=== PATIENT | male | born 1965 | race Caucasian/White ===

== ENCOUNTER 2019-05-16 08:42 | Emergency (ER) | payer MEDICARE, OTHER ==
[~2019-05-16] VITALS: Ht 180.3 cm; Wt 79.4 kg
[~2019-05-16 08:42] MED LIST: ARIP10; Bactroban22 GM TOP; Clotrimazole15 GM TP; DIVA500ER PO; LAMO100 PO; METO25; OXYB5 PO; RISP2 PO; SERT100 PO; SERT50 PO; ZOLP10 PO; Zofran4 MG PO
[2019-05-16 10:18] LABS: BASOPHILS ABSOLUTE AUTO 0.01 K/mm3 (0.00-0.23); BASOPHILS PERCENT AUTO 0 % (0-2); EOSINOPHILS ABSOLUTE AUTO 0.01 K/mm3 (0.00-0.68); EOSINOPHILS PERCENT AUTO 0 % (0-6); Hematocrit 37.2 % (37.0-53.0); Hemoglobin 12.3 g/dL (13.5-17.5); IMMATURE GRAN ABSOLUTE AUTO 0.02 K/mm3 (0.00-0.10); IMMATURE GRAN PERCENT AUTO 1 % (0-1); LYMPHOCYTES ABSOLUTE AUTO 0.91 K/mm3 (0.84-5.20); LYMPHOCYTES PERCENT AUTO 29 % (21-46); MONOCYTES ABSOLUTE AUTO 0.34 K/mm3 (0.16-1.47); MONOCYTES PERCENT AUTO 11 % (4-13); Mean Corpuscular HGB 30.5 pg (26.0-34.0); Mean Corpuscular HGB Conc 33.1 g/dL (31.5-36.5); Mean Corpuscular Volume 92 fL (80-100); Mean Platelet Volume 9.3 fL (9.1-12.4); NEUTROPHILS ABSOLUTE AUTO 1.81 K/mm3 (1.96-9.15); NEUTROPHILS PERCENT AUTO 58 % (41-73); Platelet Count 213 K/mm3 (150-400); RDW Coefficient Variation 13.5 % (11.7-14.2); Red Blood Cell Count 4.03 M/mm3 (4.30-5.90)
[2019-05-16 10:29] LABS: Alanine Aminotransfer (ALT/SGP 26 U/L (12-78); Albumin, Blood 3.6 g/dL (3.4-5.0); Albumin/Globulin Ratio 0.7 (0.8-1.8); Alk Phos 64 U/L (50-136); Anion Gap 9 mmol/L (6-16); Aspartate Aminotrans (AST/SGOT 44 U/L (12-37); Bilirubin, Total 0.3 mg/dL (0.1-1.0); Blood Urea Nitrogen 25 mg/dL (8-24); Bun/Creatinine Ratio 33.3 (12.0-20.0); CO2, Blood 28 mmol/L (21-32); Calcium, Blood 9.4 mg/dL (8.5-10.1); Chloride, Blood 94 mmol/L (98-108); Creatinine, Blood 0.75 mg/dL (0.60-1.20); Globulin, Blood 5.4 g/dL (2.2-4.0); Glomerular Filtration Rate >60 (60-); Glucose, Blood 126 mg/dL (70-99); Potassium, Blood 3.9 mmol/L (3.5-5.5); Sodium, Blood 131 mmol/L (136-145); Valproic Acid 95.2 ug/mL (50.0-100.0)
[2019-05-16 12:51] LABS: Source, Urine Voided
[2019-05-16 12:54] LABS: Bilirubin, Urine Neg (Neg); Blood, Urine 1+ (Neg); Glucose Qualitative, Urine Neg (Neg); Ketones, Urine 3+ (Neg); Leukocyte Esterase, Urine Neg (Neg); Nitrite, Urine Neg (Neg); Protein, Urine Neg (Neg); Specific Gravity, Urine 1.015 (1.003-1.022); Urobilinogen, Urine NORM (Normal)
[2019-05-16 13:25] LABS: Color, Urine Yellow (P-Yellow)
[2019-05-16 13:26] LABS: Appearance, Urine Clear (Clear)
[2019-05-16 13:28] LABS: Bacteria Rare /hpf; Mucus Mod (0-Heavy); Squamous Epithelial Cells Not Seen /hpf (Few)
[2019-05-16] MEDS ORDERED: ONDA4ODT MM (13:36)
[2019-05-16] MEDS ORDERED: Bactrim Ds Tab1 EACH PO (13:36)
== END 2019-05-16 14:15 | disposition home or self-care (01) ==
LOC: ER 08:42
PROVIDERS: Emergency Medicine
DX: N39.0 Urinary tract infection, site not specified (principal); R53.1 Weakness; I10 Essential (primary) hypertension; F32.9 Major depressive disorder, single episode, unspecified; G40.909 Epilepsy, unspecified, not intractable, without status epilepticus; G47.00 Insomnia, unspecified; Z79.899 Other long term (current) drug therapy
CPT/HCPCS: 36415; 51701; 80053; 80164; 80175; 81001; 85025; 99284; J7030

== ENCOUNTER 2024-10-04 08:29 | Emergency (ER) | payer MEDICARE, OTHER ==
[~2024-10-04] VITALS: Ht 175.3 cm; Wt 170.0 kg
[~2024-10-04 08:29] MED LIST changes: +Bactrim Ds Tab1 EACH PO; +ONDA4ODT MM
[2024-10-04 09:41] LABS: BASOPHILS ABSOLUTE AUTO 0.02 K/mm3 (0.00-0.23); BASOPHILS PERCENT AUTO 0 % (0-2); EOSINOPHILS ABSOLUTE AUTO 0.01 K/mm3 (0.00-0.68); EOSINOPHILS PERCENT AUTO 0 % (0-6); Hematocrit 38.1 % (37.0-53.0); Hemoglobin 12.7 g/dL (13.5-17.5); IMMATURE GRAN ABSOLUTE AUTO 0.02 K/mm3 (0.00-0.10); IMMATURE GRAN PERCENT AUTO 0 % (0-1); LYMPHOCYTES ABSOLUTE AUTO 1.06 K/mm3 (0.84-5.20); LYMPHOCYTES PERCENT AUTO 13 % (21-46); MONOCYTES ABSOLUTE AUTO 1.09 K/mm3 (0.16-1.47); MONOCYTES PERCENT AUTO 13 % (4-13); Mean Corpuscular HGB 31.5 pg (26.0-34.0); Mean Corpuscular HGB Conc 33.3 g/dL (31.5-36.5); Mean Corpuscular Volume 95 fL (80-100); Mean Platelet Volume 9.8 fL (9.1-12.4); NEUTROPHILS ABSOLUTE AUTO 6.02 K/mm3 (1.96-9.15); NEUTROPHILS PERCENT AUTO 73 % (41-73); Platelet Count 196 K/mm3 (150-400); RDW Coefficient Variation 13.5 % (11.7-14.2); RDW Standard Deviation 47.5 fL (35.1-46.3); Red Blood Cell Count 4.03 M/mm3 (4.30-5.90); White Blood Cell Count 8.22 K/mm3 (4.00-11.30)
[2024-10-04 09:58] LABS: Albumin, Blood 4.1 g/dL (3.4-5.0); Albumin/Globulin Ratio 1.1 (0.8-1.8); Bilirubin, Total 0.4 mg/dL (0.1-1.0); Bun/Creatinine Ratio 46.8 (12.0-20.0); Calcium, Blood 9.5 mg/dL (8.5-10.1); Creatinine, Blood 0.79 mg/dL (0.60-1.20); Globulin, Blood 3.9 g/dL (2.2-4.0); Magnesium, Blood 2.7 mg/dL (1.6-2.4); Potassium, Blood 3.7 mmol/L (3.5-5.5)
[2024-10-04 12:43] LABS: Source, Urine Straight Cath
[2024-10-04 12:59] LABS: Appearance, Urine Clear (Clear); Bilirubin, Urine Neg (Neg); Blood, Urine 5+ (Neg); Color, Urine Amber (P-Yellow); Glucose Qualitative, Urine Neg (Neg); Ketones, Urine 2+ (Neg); Leukocyte Esterase, Urine Neg (Neg); Nitrite, Urine Neg (Neg); Protein, Urine 2+ (Neg); Specific Gravity, Urine 1.025 (1.003-1.022); Urobilinogen, Urine NORM (Normal)
[2024-10-04 13:20] LABS: Red Blood Cells, Urine 0-2 /hpf (0-2); White Blood Cells, Urine 0-2 /hpf (0-5)
[2024-10-04 13:23] LABS: Squamous Epithelial Cells Rare /hpf (Few)
[2024-10-04 13:24] LABS: Amorphous Heavy (0-Heavy); Bacteria Few /hpf; Mucus Light (0-Heavy)
[2024-10-04] MEDS ORDERED: MIRALAX1714 PO (14:35)
[2024-10-04] MEDS ORDERED: QUET25 PO (14:35)
[2024-10-04 14:45] VITALS: BP 126/80
[2024-10-05] MEDS ORDERED: Seroquel Xr50 MG PO (08:38)
[2024-10-07 04:16] LABS: LAMOTRIGINE 16.3 ug/mL (3.0-15.0)
== END 2024-10-04 14:46 | disposition home or self-care (01) ==
LOC: ER 08:29
PROVIDERS: Emergency Medicine; Physician Assistant
DX: F03.90 Unspecified dementia, unspecified severity, without behavioral disturbance, psychotic disturbance, mood disturbance, and anxiety (principal); F05 Delirium due to known physiological condition; K59.09 Other constipation; R74.01 Elevation of levels of liver transaminase levels; I10 Essential (primary) hypertension; G47.00 Insomnia, unspecified; G40.909 Epilepsy, unspecified, not intractable, without status epilepticus; Z79.899 Other long term (current) drug therapy
CPT/HCPCS: 51701; 76705; 80053; 80175; 81001; 82140; 82977; 83690; 83735; 85025; 99283-25

== ENCOUNTER 2024-10-05 07:29 | Emergency (ER) | payer MEDICARE, OTHER ==
[~2024-10-05] VITALS: Ht 182.9 cm; Wt 81.7 kg
[~2024-10-05 07:29] MED LIST changes: +MIRALAX1714 PO; +QUET25 PO
[2024-10-05 08:26] VITALS: BP 141/93
[2024-10-05] MEDS ORDERED: QUEtiapine Fumarate 100 MG Tab PO ONE (08:35)
[2024-10-05] MEDS ORDERED: Seroquel Xr50 MG PO (08:38)
== END 2024-10-05 08:52 | disposition home or self-care (01) ==
LOC: ER 07:29
DX: G47.00 Insomnia, unspecified (principal); F79 Unspecified intellectual disabilities; I10 Essential (primary) hypertension; G40.909 Epilepsy, unspecified, not intractable, without status epilepticus; G20.A1 Parkinson's disease without dyskinesia, without mention of fluctuations; Z79.899 Other long term (current) drug therapy; Z59.89 Other problems related to housing and economic circumstances
CPT/HCPCS: 99281; A9270

== ENCOUNTER 2024-10-08 11:49 | Observation (INO) | payer MEDICARE, OTHER ==
[~2024-10-08] VITALS: Ht 175.3 cm; Wt 72.6 kg
[~2024-10-08 11:49] MED LIST changes: +Seroquel Xr50 MG PO
[2024-10-08] MEDS ORDERED: DiphenhydrAMINE HCl 50 MG/ML 1ML Vial IM ONE (12:50)
[2024-10-08] MEDS ORDERED: LORazepam 2 MG/ML 1ML Injection IM ONE ×2 (12:50→15:45)
[2024-10-08] MEDS ORDERED: QUETIAPINE FUMA5012 PO (12:54)
[2024-10-08] MEDS ORDERED: LORA1 PO (12:54)
[2024-10-08] MEDS ORDERED: DIVALPROEX SOD500 M2 PO (12:54)
[2024-10-08] MEDS ORDERED: ZOLOFT10013 PO (12:55)
[2024-10-08] MEDS ORDERED: LORA2 PO (12:55)
[2024-10-08] MEDS ORDERED: DEPAKOTE ER250 M2 PO (12:55)
[2024-10-08] MEDS ORDERED: LAMOTRIGINE100 M1 PO (12:55)
[2024-10-08] MEDS ORDERED: Haloperidol Lactate Inj. 5 MG/ML Injection IM ONE (13:30)
[2024-10-08] MEDS ORDERED: OLANZapine 10 MG Vial IM ONE (13:55)
[2024-10-08] MEDS ORDERED: Midazolam HCL 1 MG/ML 5MLVIAL IM ONE (14:40)
[2024-10-08 15:37] LABS: BASOPHILS ABSOLUTE AUTO 0.01 K/mm3 (0.00-0.23); BASOPHILS PERCENT AUTO 0 % (0-2); EOSINOPHILS PERCENT AUTO 0 % (0-6); Hemoglobin 12.1 g/dL (13.5-17.5); IMMATURE GRAN ABSOLUTE AUTO 0.02 K/mm3 (0.00-0.10); IMMATURE GRAN PERCENT AUTO 0 % (0-1); LYMPHOCYTES ABSOLUTE AUTO 1.09 K/mm3 (0.84-5.20); LYMPHOCYTES PERCENT AUTO 15 % (21-46); MONOCYTES ABSOLUTE AUTO 0.82 K/mm3 (0.16-1.47); MONOCYTES PERCENT AUTO 11 % (4-13); Mean Corpuscular HGB 31.7 pg (26.0-34.0); Mean Corpuscular HGB Conc 34.6 g/dL (31.5-36.5); Mean Corpuscular Volume 92 fL (80-100); Mean Platelet Volume 10.7 fL (9.1-12.4); NEUTROPHILS ABSOLUTE AUTO 5.38 K/mm3 (1.96-9.15); NEUTROPHILS PERCENT AUTO 74 % (41-73); Platelet Count 149 K/mm3 (150-400); RDW Coefficient Variation 12.7 % (11.7-14.2); RDW Standard Deviation 42.5 fL (35.1-46.3); Red Blood Cell Count 3.82 M/mm3 (4.30-5.90); White Blood Cell Count 7.32 K/mm3 (4.00-11.30)
[2024-10-08 16:04] LABS: Acetaminophen, Random <2.0 ug/mL (10.0-30.0); Ethanol (Alcohol), Blood, Med <3 mg/dL; Salicylate <1.7 mg/dL (2.8-20.0)
[2024-10-08 16:15] LABS: Alanine Aminotransfer (ALT/SGP 88 U/L (12-78); Albumin, Blood 3.3 g/dL (3.4-5.0); Albumin/Globulin Ratio 0.9 (0.8-1.8); Alk Phos 60 U/L (50-136); Anion Gap 12 mmol/L (3-11); Aspartate Aminotrans (AST/SGOT 183 U/L (12-37); Bilirubin, Total 0.4 mg/dL (0.1-1.0); Blood Urea Nitrogen 45 mg/dL (8-24); Bun/Creatinine Ratio 70.9 (12.0-20.0); CO2, Blood 25 mmol/L (21-32); Calcium, Blood 8.6 mg/dL (8.5-10.1); Chloride, Blood 108 mmol/L (98-108); Creatinine, Blood 0.64 mg/dL (0.60-1.20); Globulin, Blood 3.7 g/dL (2.2-4.0); Glomerular Filtration Rate 108 (60-); Glucose, Blood 101 mg/dL (70-99); Potassium, Blood 3.9 mmol/L (3.5-5.5); Sodium, Blood 141 mmol/L (136-145)
[2024-10-08] MEDS ORDERED: QUEtiapine Fumarate 50 MG TAB PO ONE (17:40)
[2024-10-08 18:25] LABS: Influenza A, PCR NEGATIVE (NEGATIVE); Influenza B, PCR NEGATIVE (NEGATIVE); Resp Syncytial Virus, PCR NEGATIVE (NEGATIVE); SARS-Cov-2 (COVID-19) PCR, MMC NEGATIVE (NEGATIVE)
[2024-10-08 22:37] VITALS: BP 113/72
[2024-10-08 23:11] LABS: Source, Urine Straight Cath
[2024-10-08 23:17] LABS: Appearance, Urine Clear (Clear); Bilirubin, Urine Neg (Neg); Blood, Urine Neg (Neg); Color, Urine Yellow (P-Yellow); Glucose Qualitative, Urine Neg (Neg); Ketones, Urine 2+ (Neg); Leukocyte Esterase, Urine Neg (Neg); Nitrite, Urine Neg (Neg); Protein, Urine 2+ (Neg); Specific Gravity, Urine 1.015 (1.003-1.022); Urobilinogen, Urine NORM (Normal); pH, Urine 6.5 (5.0-8.0)
[2024-10-08 23:29] LABS: U Benzodiazapine Screen DETECTED
[2024-10-08 23:30] LABS: U Amphetamine Screen Not Detected; U Barbituate Screen Not Detected; U Buprenorphine Screen Not Detected; U Cannabinoids Screen DETECTED; U Cocaine Screen Not Detected; U Methadone Screen Not Detected; U Methamphetamine Screen Not Detected; U Opiates Screen Not Detected; U Oxycodone Screen Not Detected; U Phencyclidine Screen Not Detected
[2024-10-08 23:32] LABS: Bacteria Few /hpf; Hyaline Casts 0-2 /lpf (0-2); Red Blood Cells, Urine 0-2 /hpf (0-2); Squamous Epithelial Cells Mod /hpf (Few); White Blood Cells, Urine 0-2 /hpf (0-5)
[2024-10-09] MEDS ORDERED: RisperiDONE 1 MG Tab PO ONE (12:45)
== END 2024-10-09 16:11 | disposition home or self-care (01) ==
LOC: ER 11:49 → EOR 11:50
PROVIDERS: Student in an Organized Health Care Education/Training Program; ADMIT Student in an Organized Health Care Education/Training Program
DX: F20.9 Schizophrenia, unspecified (principal); I10 Essential (primary) hypertension; G40.909 Epilepsy, unspecified, not intractable, without status epilepticus; G20.A1 Parkinson's disease without dyskinesia, without mention of fluctuations; Z79.899 Other long term (current) drug therapy
CPT/HCPCS: 0241U; 51701; 70450; 80053; 80320; 81001; 85025; 96372-59; 99285-25; A9270; G0378; G0480; J1200; J1630; J2060

== ENCOUNTER 2024-10-30 11:29 | Inpatient (IN) | payer MEDICARE, OTHER ==
[~2024-10-30] VITALS: Ht 182.9 cm; Wt 70.3 kg
[~2024-10-30 11:29] MED LIST changes: +Ativan1 MG PO; +DEPAKOTE ER250 M2 PO; +DIVALPROEX SOD500 M2 PO; +LAMOTRIGINE100 M1 PO; +LORA1 PO; +ZOLOFT10013 PO
[2024-10-30] MEDS ORDERED: Ketorolac Tromethamine 30mg Vial IV ONE (11:45)
[2024-10-30] MEDS ORDERED: NS 1,000 ML IV SCH ×2 (11:55→15:55)
[2024-10-30 11:56] LABS: BASOPHILS ABSOLUTE AUTO 0.02 K/mm3 (0.00-0.23); BASOPHILS PERCENT AUTO 0 % (0-2); EOSINOPHILS PERCENT AUTO 0 % (0-6); Hematocrit 36.5 % (37.0-53.0); Hemoglobin 12.2 g/dL (13.5-17.5); IMMATURE GRAN ABSOLUTE AUTO 0.03 K/mm3 (0.00-0.10); IMMATURE GRAN PERCENT AUTO 0 % (0-1); LYMPHOCYTES ABSOLUTE AUTO 0.73 K/mm3 (0.84-5.20); LYMPHOCYTES PERCENT AUTO 8 % (21-46); MONOCYTES PERCENT AUTO 11 % (4-13); Mean Corpuscular HGB 31.4 pg (26.0-34.0); Mean Corpuscular HGB Conc 33.4 g/dL (31.5-36.5); Mean Corpuscular Volume 94 fL (80-100); Mean Platelet Volume 10.4 fL (9.1-12.4); NEUTROPHILS PERCENT AUTO 80 % (41-73); Platelet Count 204 K/mm3 (150-400); RDW Coefficient Variation 13.5 % (11.7-14.2); RDW Standard Deviation 46.7 fL (35.1-46.3); Red Blood Cell Count 3.88 M/mm3 (4.30-5.90); White Blood Cell Count 8.88 K/mm3 (4.00-11.30)
[2024-10-30 12:11] LABS: Source, Urine Straight Cath
[2024-10-30 12:18] LABS: Albumin, Blood 3.8 g/dL (3.4-5.0); Bilirubin, Total 0.5 mg/dL (0.1-1.0); Bun/Creatinine Ratio 19.3 (12.0-20.0); Calcium, Blood 9.8 mg/dL (8.5-10.1); Creatinine, Blood 1.71 mg/dL (0.60-1.20); Globulin, Blood 3.9 g/dL (2.2-4.0); Potassium, Blood 4.1 mmol/L (3.5-5.5); Total Protein, Blood 7.7 g/dL (6.4-8.2)
[2024-10-30 12:21] LABS: Appearance, Urine Clear (Clear); Bilirubin, Urine Neg (Neg); Blood, Urine Neg (Neg); Color, Urine Amber (P-Yellow); Glucose Qualitative, Urine Neg (Neg); Ketones, Urine 1+ (Neg); Leukocyte Esterase, Urine Neg (Neg); Nitrite, Urine Neg (Neg); Protein, Urine 2+ (Neg); Specific Gravity, Urine 1.015 (1.003-1.022); Urobilinogen, Urine 1+ (Normal)
[2024-10-30 12:34] LABS: Bacteria Rare /hpf; Mucus Heavy (0-Heavy); Red Blood Cells, Urine 0-2 /hpf (0-2); Squamous Epithelial Cells Mod /hpf (Few); White Blood Cells, Urine 0-2 /hpf (0-5)
[2024-10-30] MEDS ORDERED: Lidocaine 2% Jelly Uro-Jet UR ONE (13:10)
[2024-10-30 14:17] LABS: Source, Urine Foley catheter
[2024-10-30 14:23] LABS: Appearance, Urine Hazy (Clear); Bilirubin, Urine Neg (Neg); Blood, Urine 3+ (Neg); Color, Urine Yellow (P-Yellow); Glucose Qualitative, Urine Neg (Neg); Ketones, Urine 2+ (Neg); Leukocyte Esterase, Urine Neg (Neg); Nitrite, Urine Neg (Neg); Protein, Urine 2+ (Neg); Specific Gravity, Urine 1.015 (1.003-1.022); Urobilinogen, Urine 1+ (Normal)
[2024-10-30 14:34] LABS: Bacteria Few /hpf; Hyaline Casts 0-2 /lpf (0-2); Mucus Mod (0-Heavy); Squamous Epithelial Cells Not Seen /hpf (Few); White Blood Cells, Urine 0-2 /hpf (0-5)
[2024-10-30] MEDS ORDERED: DEPAKOTE500 M2 PO ×2 (15:32)
[2024-10-30] MEDS ORDERED: RISP2 PO ×2 (15:35)
[2024-10-30] MEDS ORDERED: FLU VACC TS2024-25(6MOS UP)/PF 45 MCG/0.5 ML SYRINGE IM SCH (15:55)
[2024-10-30] MEDS ORDERED: Polyethylene Glycol 3350 17 gm PO SCH (16:00)
[2024-10-30] MEDS ORDERED: Docusate Sodium 100 MG Cap PO SCH (16:00)
[2024-10-30 17:42] VITALS: BP 113/74
--- NOTE | 2024-10-30 17:45 | NUR ---
PT TRANSFERED FROM THE ED.
[2024-10-30 19:19] VITALS: BP 103/62
[2024-10-30] MEDS ORDERED: Acetaminophen 500 MG Tab PO PRN (19:20)
--- NOTE | 2024-10-30 23:27 | NUR ---
1915- PT FOUND TO HAVE A TEMP. PROVIDER CALLED AND TYLENOL WAS ORDERED. COOLING MEASURES PROVIDED.
[2024-10-31] MEDS ORDERED: LORazepam 0.5 MG Tab PO PRN (00:10)
[2024-10-31 04:03] VITALS: BP 121/87
--- NOTE | 2024-10-31 05:28 | NUR ---
NOC SUMMARY- PT YELLS OUT AT TIMES. PT SAYS OUCH. PT REPORTS ABD AND BLADDER DISCOMFORT. PT FOUND TO HAVE A FEVER AND PROVIDER CALLED AND PO TYLENOL WAS ORDERED. PT DISCOMFORT AND FEVER RESPONDED WELL TO TYLENOL. PT SEEKS ATTENTION FREQUENTLY. PT HAD A SMALL BM NOTED. PT ENCOURAGED TO DRINK FLUIDS. PT HAS NOT SLEPT ALL SHIFT. PT HAS BEEN WATCHING TV. THOMASON IS DRAINING TO GRAVITY. CALL LIGHT IN REACH.
[2024-10-31 06:19] LABS: BASOPHILS ABSOLUTE AUTO 0.01 K/mm3 (0.00-0.23); BASOPHILS PERCENT AUTO 0 % (0-2); EOSINOPHILS ABSOLUTE AUTO 0.01 K/mm3 (0.00-0.68); EOSINOPHILS PERCENT AUTO 0 % (0-6); Hematocrit 32.2 % (37.0-53.0); Hemoglobin 10.9 g/dL (13.5-17.5); IMMATURE GRAN ABSOLUTE AUTO 0.02 K/mm3 (0.00-0.10); IMMATURE GRAN PERCENT AUTO 0 % (0-1); LYMPHOCYTES ABSOLUTE AUTO 1.08 K/mm3 (0.84-5.20); LYMPHOCYTES PERCENT AUTO 20 % (21-46); MONOCYTES ABSOLUTE AUTO 0.75 K/mm3 (0.16-1.47); MONOCYTES PERCENT AUTO 14 % (4-13); Mean Corpuscular HGB 31.4 pg (26.0-34.0); Mean Corpuscular HGB Conc 33.9 g/dL (31.5-36.5); Mean Corpuscular Volume 93 fL (80-100); Mean Platelet Volume 10.4 fL (9.1-12.4); NEUTROPHILS ABSOLUTE AUTO 3.46 K/mm3 (1.96-9.15); NEUTROPHILS PERCENT AUTO 65 % (41-73); Platelet Count 178 K/mm3 (150-400); RDW Coefficient Variation 13.6 % (11.7-14.2); RDW Standard Deviation 46.4 fL (35.1-46.3); Red Blood Cell Count 3.47 M/mm3 (4.30-5.90); White Blood Cell Count 5.33 K/mm3 (4.00-11.30)
[2024-10-31 06:52] LABS: Bun/Creatinine Ratio 38.5 (12.0-20.0); Calcium, Blood 8.8 mg/dL (8.5-10.1); Creatinine, Blood 0.62 mg/dL (0.60-1.20); Potassium, Blood 3.5 mmol/L (3.5-5.5)
[2024-10-31 08:19] VITALS: BP 120/96
[2024-10-31] MEDS ORDERED: Enoxaparin 40 MG/0.4 ML SYR SC SCH (09:00)
[2024-10-31] MEDS ORDERED: QUETIAPINE FUMA5012 PO (12:56)
[2024-10-31] MEDS ORDERED: QUETIAPINE FUMA25 MG PO (12:57)
[2024-10-31] MEDS ORDERED: Piperacillin/Tazobactam Sod 3.375 GM in NS 100 ML IV SCH (14:00)
[2024-10-31 14:32] VITALS: BP 115/84
[2024-10-31] MEDS ORDERED: NS 250 ML IV PRN (15:50)
--- NOTE | 2024-10-31 19:41 | NUR ---
uneventful day for pt very difficult to understand or get point across, pt follows directions but only if directed. md from consult was in to assess coccyx wound pt was hesitant to have us look but finally allowed us, possible sx today for i/d.
--- NOTE | 2024-10-31 19:43 | NUR ---
sx cancelled for today because pt had eaten a couple bites of food, pt to possibly have sx tomorrow. repeatedly asked pt if he was having pain but he couldnt answer appropriatly, pt has no grimice but abd is tight and he is refusing to eat.
--- NOTE | 2024-10-31 19:45 | NUR ---
Dr Linares notified of pt coccyx wound.
--- NOTE | 2024-10-31 19:46 | NUR ---
after several attempts to have pt have a bm i enc him to stand and transfer to toilet. pt had very large watery stooland stated he felt better. pt ambulated well with only stand by assist.
[2024-10-31 20:17] VITALS: BP 143/95
[2024-10-31] MEDS ORDERED: Arginine/Glutamine/Calcium Hmb 1 Packet PO SCH (21:00)
[2024-11-01] VITALS (20 sets, daily range): BP systolic 106–145; BP diastolic 61–97
--- NOTE | 2024-11-01 04:18 | NUR ---
SHIFT SUMMARY PATIENT HAD NO ACUTE CHANGES. ALERT TO SELF AND ONE ASSIST TO BSC. DENIES CHEST PAIN, SOB, AND N/V. VSS/AFEBRILE. THOMASON PATENT AND DRAINING TO GRAVITY FOR RETENTION. NPO FOR I&D. PIV INTACT. IV ABX INFUSED. WATCHED TV FIRST PART OF SHIFT. CALL LIGHT IN REACH. BED IN LOWEST POSITION. WILL CONTINUE TO MONITOR UNTIL DAY SHIFT NURSE ASSUMES CARE.
[2024-11-01 04:59] LABS: BASOPHILS ABSOLUTE AUTO 0.01 K/mm3 (0.00-0.23); BASOPHILS PERCENT AUTO 0 % (0-2); EOSINOPHILS PERCENT AUTO 0 % (0-6); Hematocrit 39.5 % (37.0-53.0); Hemoglobin 13.3 g/dL (13.5-17.5); IMMATURE GRAN ABSOLUTE AUTO 0.02 K/mm3 (0.00-0.10); IMMATURE GRAN PERCENT AUTO 0 % (0-1); LYMPHOCYTES ABSOLUTE AUTO 0.94 K/mm3 (0.84-5.20); LYMPHOCYTES PERCENT AUTO 12 % (21-46); MONOCYTES ABSOLUTE AUTO 0.75 K/mm3 (0.16-1.47); MONOCYTES PERCENT AUTO 10 % (4-13); Mean Corpuscular HGB 31.1 pg (26.0-34.0); Mean Corpuscular HGB Conc 33.7 g/dL (31.5-36.5); Mean Corpuscular Volume 93 fL (80-100); Mean Platelet Volume 10.2 fL (9.1-12.4); NEUTROPHILS PERCENT AUTO 78 % (41-73); Platelet Count 210 K/mm3 (150-400); RDW Coefficient Variation 13.2 % (11.7-14.2); RDW Standard Deviation 45.2 fL (35.1-46.3); Red Blood Cell Count 4.27 M/mm3 (4.30-5.90); White Blood Cell Count 7.62 K/mm3 (4.00-11.30)
[2024-11-01 05:18] LABS: Bun/Creatinine Ratio 45.2 (12.0-20.0); Creatinine, Blood 0.6 mg/dL (0.60-1.20); Potassium, Blood 3.3 mmol/L (3.5-5.5)
[2024-11-01] MEDS ORDERED: Potassium Chloride 10 Meq Tablet SA PO ONE (08:00)
--- NOTE | 2024-11-01 08:23 | NUR ---
pt laying in bed, nonverbal at this time, makes eye contact and answers simple questions, follows commands, lungs are clear t/o, resp even and unlabored, no cough noted, hrr, no edema noted, ppp+2, cap refill <3 sec, vs stable, afebrile, piv to lac site is clear and patent, btx hypoactive, abd flat soft nontender, voids via roberts cath at this time, draining yellow urine, skin has large decub ulcer on sacrum, plan is for I&D today, will keep npo and hold yuri diane perla, call light in reach.
[2024-11-01] MEDS ORDERED: Lactobacil 2-S.Thermo-Bifido 1 1 Cap PO SCH (09:00)
[2024-11-01] MEDS ORDERED: Sodium Hypochlorite 480 ML BTL (0.25%) TOP ONE (10:50)
[2024-11-01] MEDS ORDERED: propofoL 20 ML IV ONE (10:54)
[2024-11-01] MEDS ORDERED: FentaNYL Citrate 50 MCG/ML 2 ML Injection ONE (10:56)
[2024-11-01] MEDS ORDERED: Lactated Ringer's 1,000 ML IV ONE (11:14)
[2024-11-01] MEDS ORDERED: Rocuronium Bromide 10 MG/ML 5ML Injection IV ONE (11:36)
[2024-11-01] MEDS ORDERED: Sodium Hypochlorite 480 ML BTL (0.25%) ONE (11:41)
[2024-11-01] MEDS ORDERED: Midazolam HCl 1MG / ML 2ML Vial ONE (11:56)
--- NOTE | 2024-11-01 12:04 | NUR ---
PT TO PACU VIA BED FROM RM 343 FOR PREOP CARE AT 1145. RESPONDS USING SINGLE WORDS TO QUESTIONS ASKED. RESTING QUIETLY. FEBRILE 99.4/VSS STABLE. DENIES PAIN/NAUSEA. LR AT TKO NOW INFUSING. SURICAL PACK COMPLETE. SURICAL HAT/PAS SLEEVES/BP CUFF IN PLACE. NO COMPLAINTS AT THIS TIME.
--- NOTE | 2024-11-01 12:09 | NUR ---
PT TO OR 2 VIA BED IN STABLE CONDITION AT 1205.
[2024-11-01] MEDS ORDERED: Ondansetron HCl 2 MG / ML 2ML Vial ONE (12:31)
[2024-11-01] MEDS ORDERED: Sugammadex Sodium 200 MG/2ML SDV (100 MG/ML) ONE (12:35)
[2024-11-01] MEDS ORDERED: Bupivacaine 0.5% HCl 5 MG/ML 30MLVIAL ONE (12:38)
--- NOTE | 2024-11-01 14:01 | NUR ---
pt returned to room in good condition, sleepy, vs stable, call light in reach.
--- NOTE | 2024-11-01 18:05 | NUR ---
pt has been sleeping since surgery, opens eyes when spoke to or touched, returns to sleep, v.s. stable, no other changes this shift, call light in reach.
[2024-11-02 03:29] VITALS: BP 105/73
--- NOTE | 2024-11-02 04:44 | NUR ---
SHIFT SUMMARY PATIENT SOMNULENT T/O SHIFT AFTER PROCEDURE. ALERT TO SELF AND BEDREST AT THIS TIME. PO MEDICATION HELD. NO S/SX OF CHEST PAIN, SOB, AND N/V. PIV INTACT. IV ABXS INFUSED. VSS/AFEBRILE. THOMASON PATIENT AND DRAINING TO GRAVITY. CALL LIGHT IN REACH. BED IN LOWEST POSITION. WILL CONTINUE TO MONITOR UNTIL DAY SHIFT NURSE ASSUMES CARE.
[2024-11-02 05:47] LABS: BASOPHILS ABSOLUTE AUTO 0.02 K/mm3 (0.00-0.23); BASOPHILS PERCENT AUTO 0 % (0-2); EOSINOPHILS ABSOLUTE AUTO 0.01 K/mm3 (0.00-0.68); EOSINOPHILS PERCENT AUTO 0 % (0-6); Hematocrit 33.9 % (37.0-53.0); Hemoglobin 11.2 g/dL (13.5-17.5); IMMATURE GRAN ABSOLUTE AUTO 0.02 K/mm3 (0.00-0.10); IMMATURE GRAN PERCENT AUTO 0 % (0-1); LYMPHOCYTES ABSOLUTE AUTO 1.34 K/mm3 (0.84-5.20); LYMPHOCYTES PERCENT AUTO 22 % (21-46); MONOCYTES ABSOLUTE AUTO 0.66 K/mm3 (0.16-1.47); MONOCYTES PERCENT AUTO 11 % (4-13); Mean Corpuscular HGB 31.1 pg (26.0-34.0); Mean Corpuscular Volume 94 fL (80-100); Mean Platelet Volume 10.7 fL (9.1-12.4); NEUTROPHILS PERCENT AUTO 67 % (41-73); Platelet Count 188 K/mm3 (150-400); RDW Coefficient Variation 13.2 % (11.7-14.2); RDW Standard Deviation 46.2 fL (35.1-46.3); White Blood Cell Count 6.15 K/mm3 (4.00-11.30)
[2024-11-02 06:38] LABS: Albumin, Blood 2.6 g/dL (3.4-5.0); Albumin/Globulin Ratio 0.8 (0.8-1.8); Bilirubin, Total 0.4 mg/dL (0.1-1.0); Bun/Creatinine Ratio 37.8 (12.0-20.0); Calcium, Blood 8.7 mg/dL (8.5-10.1); Creatinine, Blood 0.69 mg/dL (0.60-1.20); Globulin, Blood 3.3 g/dL (2.2-4.0); Potassium, Blood 3.7 mmol/L (3.5-5.5); Total Protein, Blood 5.9 g/dL (6.4-8.2)
[2024-11-02 07:26] VITALS: BP 120/77
--- NOTE | 2024-11-02 13:04 | NUR ---
NOTE CHANGED PT WOUND DRESSING AT 1030. DRESSING WAS SATURATED WITH SANGUINEOUS FLUID. CLEANED WOUND WITH 4X4 GAUZE AND WOUND CLEANSER. MOISTENED KERLIX WITH 0.25% DAKINS SOLUTION AND TIGHTLY PACKED INTO ALL ASPECTS OF THE WOUND FIRST SPIRALING IN TO FILL SPACE. COVERED WITH GAUZE AND EXUDRY ABSORBENT DRESSING, SECURED WITH TAPE. TOOK UPDATED PIC OF WOUND AND IN CHART. PT WAS AGITATION DURING DRESSING CHANGE AND HIT STAFF BUT AFTER COMPLETED DRESSING CHANGED SEEMED TO CALM DOWN. CALL LIGHT IN REACH, ABLE TO MAKE NEEDS KNOWN.
[2024-11-02 15:12] VITALS: BP 135/89
--- NOTE | 2024-11-02 18:50 | NUR ---
PT TRANSFERRED TO ROOM 346. REPORT GIVEN TO SHEYLA GIVENS RN. PT AND BELONGINGS TRANSPORTED TO ROOM.
--- NOTE | 2024-11-02 19:42 | NUR ---
SHIFT SUMMARY PT A&O TO SELF. PT CALLS OUT AND MAKES NEEDS KNOWN, PT ADMITTED DUE TO PIERRE. PT HAD WASH OUT YESTERDAY OF COCCYX WOUND. WOUND DRESSING CHANGED TODAY. PT ON ROOM AIR. PT RECEIVED ANTIBIOTICS. VSS. PT HAS THOMASON CATH FOR RETENTION, URINE WAS FREEFLOWING WITH NO DEPENDENT LOOPS DURING SHIFT. PT WAS REPOSITIONED Q2 HR. PT REPORTED NO PAIN. PT WOULD REFUSED MEALS BUT DRANK ENSURES FOR NUTRITION. PLAN IS FOR PLACEMENT. PT CALL LIGHT IN REACH.
[2024-11-02 20:18] VITALS: BP 136/96
[2024-11-03 02:37] VITALS: BP 142/99
[2024-11-03 05:58] LABS: Hematocrit 36.4 % (37.0-53.0); Hemoglobin 12.5 g/dL (13.5-17.5)
[2024-11-03 06:13] LABS: Bun/Creatinine Ratio 48.7 (12.0-20.0); Calcium, Blood 8.4 mg/dL (8.5-10.1); Creatinine, Blood 0.55 mg/dL (0.60-1.20); Potassium, Blood 2.5 mmol/L (3.5-5.5)
[2024-11-03 07:16] VITALS: BP 129/91
[2024-11-03] MEDS ORDERED: Potassium Chl 20MEQ/Water100ML 100 ML IV SCH (08:15)
[2024-11-03 08:43] LABS: Magnesium, Blood 1.6 mg/dL (1.6-2.4); Phosphorus, Blood 3.2 mg/dL (2.5-4.9)
[2024-11-03] MEDS ORDERED: Potassium Chloride 10 Meq Tablet SA PO ONE (09:00)
--- NOTE | 2024-11-03 09:46 | NUR ---
REPORT RECEIVED. PT CRYING OUT AND SEEMS UNCOMFORTABLE, PT BRIEF WAS FILLED WITH WATERY STOOL PT ABD LARGE AND DISTENDED, ASSISTED PT TO BATHROOM, PT AMBULATORY WITH STAND BY ASSIST.
--- NOTE | 2024-11-03 09:47 | NUR ---
DRESSING CHARGED PT WOUND WAS FILLED WITH STOOL, WOUND WAS EXTENSIVLY IRRIGATED AND REBANDAGED, PT DOESNT SEEM TO HAVE PAIN AT WOUND SITE BUT DOES HAVE ABD PAIN.
[2024-11-03] MEDS ORDERED: Sod Phosphate/Sod Biphosphate 132 ML BTL PR ONE (10:15)
[2024-11-03 15:16] VITALS: BP 129/99
[2024-11-03] MEDS ORDERED: OxyCODONE 5 mg/Acetamin 325 mg TABLET PO PRN (16:45)
--- NOTE | 2024-11-03 19:26 | NUR ---
pt was assisted out of bed to the bathroom several times throughout shift and did very well with minimal assist. the third time pt was assisted to the bathroom pt had major exsplosive event and sprayed loose stool on floor wall and door of bathroom. pt was saftly assisted back to bed and full bed bath done, dressing change done as well. over all pt cheikh well and seems to feel much better.
--- NOTE | 2024-11-03 19:30 | NUR ---
pt medicated for pain md was notifed that pt might not be able to express pain as one would. i noted slight grimice and agitation when turned i request some pain medication with hopes that it may bring relief.
[2024-11-03 19:34] VITALS: BP 142/98
[2024-11-04 02:04] VITALS: BP 135/93
[2024-11-04 05:55] LABS: Hematocrit 34.3 % (37.0-53.0)
[2024-11-04 06:08] LABS: Albumin, Blood 2.7 g/dL (3.4-5.0); Anion Gap 10 mmol/L (3-11); Blood Urea Nitrogen 24 mg/dL (8-24); Bun/Creatinine Ratio 52.6 (12.0-20.0); CO2, Blood 25 mmol/L (21-32); Calcium, Blood 8.9 mg/dL (8.5-10.1); Chloride, Blood 104 mmol/L (98-108); Creatinine, Blood 0.46 mg/dL (0.60-1.20); Glomerular Filtration Rate 119 (60-); Glucose, Blood 131 mg/dL (70-99); Phosphorus, Blood 2.5 mg/dL (2.5-4.9); Potassium, Blood 2.9 mmol/L (3.5-5.5); Sodium, Blood 136 mmol/L (136-145)
--- NOTE | 2024-11-04 07:35 | NUR ---
shift summary patient did not rest well, several large loose explosive bowel movements, Abd is very taut and somewhat distended, received all bowel care meds as ordered, Anticipating form stool due to CT showing constipation. Stage 4 sacral/coccyx wound soiled and was redressed several times, [place] care done after each BM also. Pt not tolerating wound care c/o pain , Acosta ABREU overnight requested prn pain medication prior to dressing changes Pt spit out his percocet which was crushed in applesauce, recommended an IV pain med, still awaiting order, relayed above to oncoming VINH newsome
[2024-11-04 07:43] VITALS: BP 136/80
[2024-11-04] MEDS ORDERED: Amoxicillin/Clavulanate K 875 MG Tab PO SCH (09:00)
[2024-11-04] MEDS ORDERED: FentaNYL Citrate 50 MCG/ML 2 ML Injection IV PRN (10:20)
--- NOTE | 2024-11-04 10:27 | NUR ---
PO ANTIBIOTIC CRUSHED AND ATTEMPTED TO ADMINISTER TO PT. PT GAGGED W/ PO AND REFUSED TO FINISH ANTIBIOTIC
[2024-11-04] MEDS ORDERED: LORazepam 2 MG/ML 1ML Injection IV ONE (12:20)
[2024-11-04] MEDS ORDERED: Potassium Chl 20MEQ/Water100ML 100 ML IV SCH (12:20)
[2024-11-04] MEDS ORDERED: Sodium Hypochlorite 480 ML BTL (0.25%) TOP SCH (12:55)
[2024-11-04 15:37] VITALS: BP 141/87
--- NOTE | 2024-11-04 19:21 | NUR ---
assumed care at noon and i spoke with dr tsang about very hard abd and pt complaining of constipation. enema that was held yestureday was enc today and implemented. pt had about 2000mls of loose dark diarrhea and a lot of gas, pt states he is feeling better. dressing to coccyx area cdi, pt was able to use bsc making it better for his wound. prior to enema pt was given ativan and was very compliant and responsive. pt now sleeping. call light at bedside
[2024-11-04 20:31] VITALS: BP 133/88
[2024-11-05 01:59] VITALS: BP 129/84
--- NOTE | 2024-11-05 04:32 | NUR ---
SHIFT SUMMARY ADMITTED FOR PIERRE. FULL CODE. SACRAL DECUB ULCER STG [address] DEBRIDED ON 11/01. DR. CLANCY IS SURGICAL CONSULT. ANTICIPATING PLACEMENT. MONITORING LABS, REPLACING ELECTROLYTES INDICATED. DIARRHEA REPORTED ON PREVIOUS SHIFT. DIARRHEA NOTED ON THIS SHIFT WELL. HE IS A 1 ASSIST TO BSC. ON RA. MODERATE TO SEVERE COGNITIVE DELAY. REGULAR DIET. HE DOES GAG WITH PO MEDS BUT HE DOES NOT APPEAR TO ASPIRATE OR COUGH WITH THEIR INGESTION. THOMASON IN PLACE FOR RETENTION. HX OF AUTISM WELL.
[2024-11-05 06:24] LABS: Bun/Creatinine Ratio 24.7 (12.0-20.0); Calcium, Blood 8.6 mg/dL (8.5-10.1); Creatinine, Blood 0.57 mg/dL (0.60-1.20); Potassium, Blood 2.7 mmol/L (3.5-5.5)
--- NOTE | 2024-11-05 06:36 | NUR ---
FAMILY CALLED THIS MORNING THE PATIENT'S SISTER REQUESTS THAT THIS PATIENT BE TESTED FOR PSA AND URIC ACID LABS. SHE ALSO WANTS THE HOSPITALIST TO KNOW THAT HER BROTHER DOES GO INTO SEIZURES WITH LARGE BOWEL MOVEMENTS.
[2024-11-05 07:30] VITALS: BP 130/89
[2024-11-05] MEDS ORDERED: Potassium Chl 20MEQ/Water100ML 100 ML IV SCH (09:15)
--- NOTE | 2024-11-05 15:40 | NUR ---
CALLED DR SOTO- PT BECAME AGGITATED WHEN STAFF WERE ASSISTING WITH AN ATTENDS CHANGE. HE BEGAN SLAPPING AT THE NURSE. STAFF EXPLAINED HE NEEDS TO USE HIS WORDS AND NOT HIT PEOPLE. THE PT CONTINUED TO STRIKE AT STAFF. STAFF ATTEMPTED TO PROVIDE SPACE AND THE PT SAT UP AND EYAD HIS ARM BACK TO PREPARE TO HIT AGIAN. THIS RN LEFT THE SITUATION. CALLED FOR VEST MAKER WHO ASSISTED IN CALMING THE PT. HE WAS ASSISTED UP TO THE BEDSIDE COMMODE. CALLED DR HICKMAN AND REQUESTED ATIVAN. PT RECIEVED A OT DOSE AT THIS TIME OF DAY YESTERDAY AND 12 HOURS PRIOR HE RECIEVED THE DAILY PRN DOSE OF ATIVAN. WILL REVIEW. NO NEW ORDERS AT THIS TIME.
[2024-11-05] MEDS ORDERED: RisperiDONE 1 MG Tab PO PRN (16:20)
[2024-11-05] MEDS ORDERED: LORazepam 0.5 MG Tab PO PRN (16:35)
[2024-11-05] MEDS ORDERED: Potassium Chloride 20 MEQ TabCR PO ONE (17:20)
[2024-11-05] MEDS ORDERED: Polyethylene Glycol 3350 17 gm PO PRN (17:20)
--- NOTE | 2024-11-05 19:39 | NUR ---
SHIFT SUMMARY- PT HAS CONTINUED TO BE AGGITATED SINCE 1529, WHEN HE BEGAN LASHING OUT AT STAFF WHILE THEY WERE PROVIDING CARE. CALLED AND NOTIFIED HER, NO NEW ORDERS WERE RECIEVED. REVIEWED PT HOME MED LIST AND HIS HOME MEDICATIONS WERE NOT IN THE EMAR. CALLED DR HICKMAN AND SHE ORDERED THE PT HOME MEDS. PT RECIEVED PRN ABILIFY SOON IT WAS AVAILABLE. PRN ATIVAN IS A DAILY DOSE AND THE PT RECIEVED IT THIS AM. PRN PERCOCET GIVEN THE PT HAS PAIN BUT DENIES IT WHEN ASKED. (NON VERBAL CUES FOR PAIN). MEDICATED WITH PRN FENTANYL THIS EVENING AND THE PT SEEMED TO RELAX FOR 5 MINUTES. PT SITTING UP IN THE RECLINER YELLING OUT, SEVERAL STATEMENTS ON REPEAT, "I NEED TO GO TO THE BATHROOM", (EVEN WHEN HE WENT 5 MINUTES AGO FOR 20 MINUTES STAFF ARE 1:1 FOR PT SAFETY WHEN HE IS ON THE COMODE). "I NEED ONE!" WHEN ASKED ONE WHAT? HE HAS NO ANSWER. HE HAD A VARIETY, SMALL SODA, ICE WATER, NON-ICE WATER, CHOCOLATE MILKSHAKE, STRAWBERRY MILKSHAKE AVAILABLE TO HIM T/O THE SHIFT, BUT HE WOULD CALL OUT "THIRSTY!" WHEN STAFF WOULD HELP HIM WITH SOMETHING HE WOULD STOP THEM ON THE WAY OUT "CAN I ASK YOU A QUESTION?" HE SEENS ANXIOUS AND AGGITATED TO THIS RN. NO RESCUE MEDS AVAILABLE, ASKED NIGHT RN NOT TO USE THE RESCUE DOSE OF ATIVAN THE PT HAS A SCHEDULED DOSE TONIGHT. HOME MEDS START TONIGHT. REPORT COMPLETED WITH NIGHT RN. PT IN THE ROOM SITTING UP IN HIS RECLINER YELLING "I NEED SOMETHING" WOUND CARE DRESSING CHAGE COMPLETED THIS MORNING.
[2024-11-05 20:20] VITALS: BP 145/100
[2024-11-05] MEDS ORDERED: LORazepam 1 MG Tab PO SCH (21:00)
[2024-11-05] MEDS ORDERED: LamoTRIgine 100 MG Tab PO SCH (21:00)
[2024-11-05] MEDS ORDERED: Sertraline HCl 100 MG Tab PO SCH (21:00)
[2024-11-05] MEDS ORDERED: Divalproex Sodium 250 MG TABCR PO SCH (21:00)
[2024-11-05] MEDS ORDERED: Divalproex Sodium 500 MG TABLET.DR PO SCH (21:00)
[2024-11-05] MEDS ORDERED: RisperiDONE 1 MG Tab PO SCH (21:00)
[2024-11-06 03:06] VITALS: BP 150/86
--- NOTE | 2024-11-06 04:07 | NUR ---
SHIFT SUMMARY ADMITTED FOR PIERRE. FULL CODE. PLAN IS FOR PLACEMENT. IV ANTIB RX ARE SCHEDULED. HE WILL NEED OUTPT WOUND CENTER TREATMENT. THOMASON IN PLACE FOR RETENTION. REGULAR DIET. 1 ASSIST TO BSC. DECUBITUS ULCER STG 4 ON COCCYX, I&D PERFORMED ON 11/01/24. DR. CLANCY IS SURGICAL CONSULT. AUTISTIC, DEVELOPMENTAL DELAY, SCHIZOPHRENIC. HE YELLS OUT FREQUENTLY. HE LIKES STAFF TO BE IN THE ROOM CONTINUOUSLY. LARGE AMOUNT OF DIARRHEA THIS SHIFT AGAIN. ON RA. A&O TO SELF. BUT HE DID REMEMBER ME FROM MY PREVIOUS NOC SHIFT WITH HIM.
[2024-11-06 06:35] LABS: Hematocrit 29.6 % (37.0-53.0); Hemoglobin 10.3 g/dL (13.5-17.5); Mean Corpuscular HGB 31.2 pg (26.0-34.0); Mean Corpuscular HGB Conc 34.8 g/dL (31.5-36.5); Mean Corpuscular Volume 90 fL (80-100); Mean Platelet Volume 10.2 fL (9.1-12.4); Platelet Count 182 K/mm3 (150-400); RDW Coefficient Variation 13.2 % (11.7-14.2); RDW Standard Deviation 43.2 fL (35.1-46.3); White Blood Cell Count 3.64 K/mm3 (4.00-11.30)
[2024-11-06 06:57] LABS: Albumin, Blood 2.5 g/dL (3.4-5.0); Anion Gap 10 mmol/L (3-11); Blood Urea Nitrogen 11 mg/dL (8-24); Bun/Creatinine Ratio 27.8 (12.0-20.0); CO2, Blood 27 mmol/L (21-32); Calcium, Blood 8.4 mg/dL (8.5-10.1); Chloride, Blood 108 mmol/L (98-108); Glomerular Filtration Rate 124 (60-); Glucose, Blood 127 mg/dL (70-99); Phosphorus, Blood 2.4 mg/dL (2.5-4.9); Potassium, Blood 2.8 mmol/L (3.5-5.5); Sodium, Blood 142 mmol/L (136-145)
[2024-11-06 07:28] VITALS: BP 139/90
[2024-11-06] MEDS ORDERED: Banana Flakes/Tos 1 EA Powder Pack PO ONE (09:20)
[2024-11-06] MEDS ORDERED: Potassium Phosphate Dibasic 20 MM in Dextrose 5% 500 ML IV STA (09:26)
[2024-11-06] MEDS ORDERED: Potassium Chloride 20 MEQ TabCR PO ONE (10:00)
--- NOTE | 2024-11-06 11:25 | NUR ---
WOUND CARE COMPLETED PER MD ORDERS- PT WOUND DRESSING SOILED COMPLETELY THIS AM, FROM WOUND DRAINAGE. DRESSING CHANGE COMPLETED. PT STATED PAIN IMPROVED AFTER THE DRESSING CHANGE. IV K-PHOS ORDERED. PT IV PAINFUL ON INITIAL FLUSH, NO SWELLING NOTED, REDNESS NOTED JUST ABOVE, VINH FIGUEROA ASSESSED WELL PT DID NOT APPEAR PAINFUL ANYMORE WITH THE FLUSH. NO SIGN OF SWELLING, STARTED K-PHOS, NO SIGN OF SWELLING, REDNESS IMPROVED WITH THE INFUSION, NO C/O PAIN FROM PT. WILL CTM.
[2024-11-06 15:49] VITALS: BP 124/77
--- NOTE | 2024-11-06 19:37 | NUR ---
SHIFT SUMMARY- PT HAS HAD A LESS EVENFUL DAY TODAY. HE HAS BEEN COOPERATIVE WITH STAFF, PAIN MEDS WERE GIVEN. PT BEGAN EATING FOOD TODAY WITHOUT GAGGING. HIS SISTER CALLED AND WAS UPDATED. SHE ORDERED HIM SOME PIZZA, HE ATE 2.5 SLICES OF DOMINOES FOR DINNER. HE WANTED TO GET BACK INTO BED AFTER HE WAS DONE EATING. PT IN BED AT THE TIME OF BEDSIDE REPORT. WOUND CARE DRESSING CHANGE COMPLETED EARLY IN THE SHIFT. PT FREQUENT LOOSE STOOLS WERE GREATLY REDUCED AFTER THE BANNANA FLAKES. PAIN WAS IMPROVED WITH ONE DOSE OF PAIN MEDS AND A DRESSING CHANGE. PT IN BED, CALL LIGHT IN REACH WATCHING TV, NO S&S OF DISTRESS NOTED AT THE TIME OF BEDSIDE REPORT.
[2024-11-06 19:38] VITALS: BP 140/90
[2024-11-06] MEDS ORDERED: Banana Flakes/Tos 1 EA Powder Pack PO SCH (20:00)
[2024-11-06] MEDS ORDERED: Doxycycline Hyclate 100 MG TAB PO SCH (21:00)
[2024-11-07 04:02] VITALS: BP 144/89
--- NOTE | 2024-11-07 05:06 | NUR ---
SHIFT SUMMARY: PT AOX2 TO SELF AND PERSON. COOPERATIVE AND REDIRECTABLE. WITHDRAWN AND VOCALIZING PAIN BUT WHEN ASKED DENIES ANY PAIN. FORGETFUL AND DOESNT CALL APPROPRIATELY. DID CONSUME ALL OF THEIR AN AND BANANA FLAKES. TOLERATING MEDS WELL. SLEPT MOST OF THE NIGHT BUT WOKE UP AROUND 5 AM. HAD A FULL CHANGE AND DRESSING WAS CLEAN DRY AND INTACT. PT RESTING IN BED, BED IN LOWEST POSITION AND 3 BED RAILS ARE UP, CALL LIGHT IN REACH. CONTINUING CARE.
[2024-11-07 06:15] LABS: Albumin, Blood 2.5 g/dL (3.4-5.0); Anion Gap 10 mmol/L (3-11); Blood Urea Nitrogen 8 mg/dL (8-24); Bun/Creatinine Ratio 16.4 (12.0-20.0); CO2, Blood 27 mmol/L (21-32); Calcium, Blood 8.5 mg/dL (8.5-10.1); Chloride, Blood 106 mmol/L (98-108); Creatinine, Blood 0.49 mg/dL (0.60-1.20); Glomerular Filtration Rate 117 (60-); Glucose, Blood 115 mg/dL (70-99); Phosphorus, Blood 3.1 mg/dL (2.5-4.9); Potassium, Blood 3.5 mmol/L (3.5-5.5); Sodium, Blood 139 mmol/L (136-145)
[2024-11-07 07:23] VITALS: BP 127/77
[2024-11-07] MEDS ORDERED: DAKIN'S473 M1 TOP ×2 (10:28)
[2024-11-07] MEDS ORDERED: AMOCLA875 PO ×2 (10:29)
[2024-11-07] MEDS ORDERED: VISBIOME 112.51 EACH PO ×2 (10:29)
[2024-11-07] MEDS ORDERED: JUVEN PACKET1 EAC3 PO ×2 (10:30)
[2024-11-07] MEDS ORDERED: DOXY100 PO ×2 (10:30)
--- NOTE | 2024-11-07 15:08 | NUR ---
DISCHARGE SUMMARY PT DC THIS SHIFT. DC INSTRUCTION GONE OVER WITH PT AND PT SISTER FEDERICO VIA PHONE. FEDERICO EXPRESSED CONCERN ABOUT NOT BEING ABLE TO ENGAGEMENT ENGINEER PT MEDICATION PRIOR TO PHARMACY CLOSING MEDICATION ARE STILL NOT READY. THIS NURSE ADMINISTERED PT NIGHT DOSE OF ABT. PT LEFT VIA WHEELCHAIR BY TRANSPORTATION SERVICE. DISCHARGE PACKET PLACED IN FOLDER WHICH WAS PLACED IN PT BELONGING BAD AND SENT WITH PT.
--- NOTE | 2024-11-08 08:38 | NUR ---
SISTER, FEDERICO, CALLED. STATED THAT THEY WERE NOT ABLE TO ELEVATOR ADJUSTER MEDICATIONS BECAUSE PHARMACY WAS CLOSED. RX SENT TO [facility] PER SISTER'S REQEUST. SISTER WANTING RX DELIVERED TO HER AND STATING SHE CAN'T LEAVE HIM. SISTER ALSO STATES THAT HOME HEALTH HAS NOT CONTACTED HER TO MANAGE HIS WOUND CARE. SISTER SAYS THAT SHE IS CONSIDERING CALLING 911 AND HAVING HIM BROUGHT BACK.
--- NOTE | 2024-11-08 09:59 | NUR ---
SISTER CALLED BACK, AGAIN. STATES SHE IS HAVING HIM SENT BACK BY AMBULANCE. CONTINUES TO HAVE TROUBLES GETTING MEDICATIONS SINCE PARTIALLY FILLED AT ONE PHARMACY BUT WAS NOT PICKED UP.
== END 2024-11-07 15:05 | disposition home health service (06) | DRG 673 ==
LOC: ER 11:29 → MEDS 11:30 → ENPENDDIS 11-07 10:07 → MEDS 11-07 15:05
PROVIDERS: Family Medicine; Student in an Organized Health Care Education/Training Program; ADMIT Internal Medicine
PROC: 0T9B70Z Drainage of Bladder with Drainage Device, Via Natural or Artificial Opening (ICD-10-PCS; 2024-10-30)
PROC: 0JB70ZZ Excision of Back Subcutaneous Tissue and Fascia, Open Approach (ICD-10-PCS; principal; 2024-10-31)
DX: N17.9 Acute kidney failure, unspecified (principal); L89.154 Pressure ulcer of sacral region, stage 4; E44.0 Moderate protein-calorie malnutrition; F84.0 Autistic disorder; K52.1 Toxic gastroenteritis and colitis; E87.20 Acidosis, unspecified; E87.6 Hypokalemia; K21.9 Gastro-esophageal reflux disease without esophagitis; G40.909 Epilepsy, unspecified, not intractable, without status epilepticus; F20.9 Schizophrenia, unspecified; B95.61 Methicillin susceptible Staphylococcus aureus infection as the cause of diseases classified elsewhere; B95.7 Other staphylococcus as the cause of diseases classified elsewhere; R62.50 Unspecified lack of expected normal physiological development in childhood; I10 Essential (primary) hypertension; G47.00 Insomnia, unspecified; F32.A Depression, unspecified; G20.A1 Parkinson's disease without dyskinesia, without mention of fluctuations; R33.9 Retention of urine, unspecified; K59.00 Constipation, unspecified; F41.9 Anxiety disorder, unspecified; E83.39 Other disorders of phosphorus metabolism; T36.95XA Adverse effect of unspecified systemic antibiotic, initial encounter
CPT/HCPCS: 36415; 51701; 51702; 51798; 71046; 74177; 80048; 80053; 80069; 81001; 83690; 83735; 84100; 85014; 85018; 85025; 85027; 87070; 87071; 87075; 87077; 87186; 87205; 96360-59; 96361; 96374; 97129; 97165; 99285-25; A9270; G0378; J1650; J2060; J2250; J2405; J2543; J2704; J3010; J3480; J7030; J7050; J7060; J7120; Q9967

== ENCOUNTER 2024-11-08 10:04 | Emergency (ER) | payer MEDICARE, OTHER ==
[~2024-11-08] VITALS: Ht 165.1 cm; Wt 81.7 kg
[~2024-11-08 10:04] MED LIST changes: +AMOCLA875 PO; +DAKIN'S473 M1 TOP; +DEPAKOTE500 M2 PO; +DOXY100 PO; +JUVEN PACKET1 EAC3 PO; +QUETIAPINE FUMA25 MG PO; +QUETIAPINE FUMA5012 PO; +VISBIOME 112.51 EACH PO
[2024-11-08] MEDS ORDERED: Doxycycline Hyclate 100 MG TAB PO ONE (11:35)
[2024-11-08] MEDS ORDERED: Amoxicillin/Clavulanate K 875 MG Tab PO ONE (11:35)
[2024-11-08 14:30] VITALS: BP 155/98
== END 2024-11-08 17:33 | disposition home or self-care (01) ==
LOC: ER 10:04
DX: L89.154 Pressure ulcer of sacral region, stage 4 (principal); I10 Essential (primary) hypertension; F32.A Depression, unspecified; G40.909 Epilepsy, unspecified, not intractable, without status epilepticus; G20.A1 Parkinson's disease without dyskinesia, without mention of fluctuations; Z79.899 Other long term (current) drug therapy
CPT/HCPCS: 71045; 99283-25; A9270

== ENCOUNTER → 2025-04-10 | Outpatient (CLI) | payer MEDICARE, OTHER | END | disposition home or self-care (01) | LOC: LAB 12:55 → LAB SHORT 12:55 | DX: F69 Unspecified disorder of adult personality and behavior (principal) | CPT/HCPCS: 87077; 87086; 87186 ==